=== PATIENT | male | born 1965 | race Caucasian/White ===

== ENCOUNTER 2017-10-03 15:17 | Inpatient (IN) | payer OTHER ==
[~2017-10-03] VITALS: Ht 188 cm; Wt 137.9 kg
[2017-10-03 15:19] VITALS: BP 126/95
--- NOTE | 2017-10-03 16:00 | NUR ---
p0t ambulates to bed 2 at this time.
--- NOTE | 2017-10-03 16:20 | NUR ---
51 yo m bib self w/ c/o intermittent flank pain dysuria x today, but his pain has been intermittent for the past 3-4 days. He has hx kidney stones, and only has 1 kidney. pt reports pain is in his flanks, and he has dysuria with foul smelling urine. Pt also reports feeling "very cold" w/ the chills. no fever at this time. pt a&o x 4. gcs 15. cms intact. rr even and unlabored. lungs bilaterally clear. abd soft, non-tender. er md crook notified. pt needs met. will continue to monitor.
[2017-10-03] MEDS ORDERED: NACL 0.9% 1,000 ML IV SCH (16:47)
[2017-10-03] MEDS ORDERED: METOCLOPRAMIDE 10 MG/2 ML INJ VIAL IVP ONE (16:50)
[2017-10-03] MEDS ORDERED: diphenhydrAMINE 50 MG/ML VIAL IVP ONE (16:50)
[2017-10-03 17:16] LABS: BASOPHILS % (AUTO) 0.3 % (0.0-2.0); EOSINOPHILS % (AUTO) 0.5 % (0.0-4.0); HEMATOCRIT 44.7 % (36-52); HEMOGLOBIN 15.1 g/dL (12.0-18.0); LYMPHOCYTES # (AUTO) 1.7 K/uL (2.0-11.5); LYMPHOCYTES % (AUTO) 16.4 % (20.5-51.1); MEAN CORPUSCULAR HEMOGLOBIN 30 pg (27-31); MEAN CORPUSCULAR HGB CONC 34 g/dL (33-37); MONOCYTES # (AUTO) 0.8 K/uL (0.8-1.0); MONOCYTES % (AUTO) 8.2 % (1.7-9.3); NEUTROPHILS # (AUTO) 7.6 K/uL (1.8-7.7); NEUTROPHILS % (AUTO) 74.6 % (42.2-75.2); PLATELET COUNT (AUTO) 198 K/uL (140-450); RED BLOOD CELL COUNT(AUTO) 4.97 MIL/uL (4.20-6.10); RED CELL DISTRIBUTION WIDTH 13.5 % (11.6-13.7); WHITE BLOOD COUNT (AUTO) 10.2 K/uL (4.8-10.8)
[2017-10-03 17:27] LABS: APPEARANCE,URINE CLOUDY (CLEAR); BILIRUBIN,URINE NEGATIVE (NEGATIVE); BLOOD, URINE 3+ (NEGATIVE); COLOR,URINE YELLOW (YELLOW); LEUKOCYTE ESTERASE ,URINE 2+ (NEGATIVE); NITRITE, URINE NEGATIVE (NEGATIVE); UGLUCOSE NEGATIVE (NEGATIVE)
--- NOTE | 2017-10-03 17:30 | NUR ---
pt resting comfortably in [facility] at this time. will continue to monitor.
[2017-10-03 17:40] LABS: ANION GAP 12.8 (8-16); CARBON DIOXIDE 27.2 mmol/L (21-32); CREATININE 1.1 mg/dL (0.7-1.3)
[2017-10-03 17:46] LABS: ALBUMIN 3.6 g/dL (3.4-5.0); TOTAL BILIRUBIN 0.9 mg/dL (0.0-1.0)
[2017-10-03 17:48] LABS: RBC,URINE 11-20 (MOD) /HPF (0-5); WBC,URINE TOO MANY TO COUNT /HPF (0-5)
[2017-10-03] MEDS ORDERED: LEVOFLOXACIN 750 MG/D5W PREMIX 150 ML IV ONE (18:20)
[2017-10-03] MEDS ORDERED: GENTAMICIN PER PHARMACY MC PRN (18:20)
--- NOTE | 2017-10-03 18:35 | NUR ---
pt on the phone at this time. will continue to monitor.
[2017-10-03] MEDS ORDERED: HYDROcodone/APAP 7.5/325 MG 1 TAB PO PRN (19:30)
[2017-10-03] MEDS ORDERED: ACETAMINOPHEN 325 MG TAB PO PRN (19:30)
[2017-10-03] MEDS ORDERED: MORPHINE SULFATE 2 MG/ML SYR IVP PRN (19:30)
[2017-10-03] MEDS ORDERED: ZOLPIDEM 5 MG TAB PO PRN (19:30)
[2017-10-03] MEDS ORDERED: DOCUSATE SODIUM 100 MG GELCAP PO PRN (19:30)
[2017-10-03] MEDS ORDERED: LORazepam 0.5 MG TAB PO PRN (19:30)
--- NOTE | 2017-10-03 19:42 | NUR ---
X-Ray at bedside.
[2017-10-03 20:12] LABS: PROTHROMBIN TIME 11.3 secs (10.8-13.4)
[2017-10-03 20:16] LABS: CHOL/HDL RATIO 3.8 (1-4.5); FREE T4 (FREE THYROXINE) 1.05 ng/dL (0.76-1.46); MAGNESIUM 1.6 mg/dL (1.8-2.4); PHOSPHORUS 3.6 mg/dL (2.5-4.9); THYROID STIMULATING HORMONE 0.34 uIU/mL (0.34-3.74)
--- NOTE | 2017-10-03 20:16 | NUR ---
Pt talking on the phone with family at this time letting them know he will be staying over night. will continue to monitor.
[2017-10-03 20:30] VITALS: BP 124/94
--- NOTE | 2017-10-03 20:30 | NUR ---
PT ARRIVED ON UNIT VIA GURNEY. AOX4, ON ROOM AIR, IV RIGHT HAND #22G. PT HAS A HX OF FALLS-PRECAUTIONS IN PLACE. DISCUSSED PLAN OF CARE AND PT VERBALIZED UNDERSTANDING. NO S/S OF RESPIRATORY DISTRESS OR DISCOMFORT AT THIS TIME. WHITE BOARD WAS UPDATED. ORIENTED PT TO THE ROOM, HOW TO USE THE CALL LIGHT AND HOW TO OPERATE THE BED. BED IN LOWEST POSITION, SIDE RAILS UP, BED BREAKS ON. SIDE TABLE AND CALL LIGHT WITHIN REACH. MRSA SWAB DONE. WILL CONTINUE TO MONITOR.
--- NOTE | 2017-10-03 20:30 | NUR ---
Patient will be admitted to care of [facility]. Admited to M/S. Will go to [id number]. Belongings list completed. Report to DEYSI Rubio.
[2017-10-03] MEDS: NACL 0.9% 1,000 ML IV SCH (20:45)
--- NOTE | 2017-10-03 20:45 | NUR ---
NS 0.9% HUNG AND INFUSING WELL. NO S/S OF RESPIRATORY DISTRESS OR DISCOMFORT. SANDWICH AND SNACKS PROVIDED REQUESTED. WILL CONTINUE TO MONITOR.
[2017-10-03 21:08] LABS: BARBITURATE, URINE NEGATIVE ng/ml (NEG <=200); BENZODIAZEPINE, URINE NEGATIVE ng/mL (NEG <=200); CANNABINOID, URINE NEGATIVE ng/mL (NEG <=50); PHENCYCLIDINE SCREEN,URINE NEGATIVE ng/mL (NEG <=25)
[2017-10-03 21:09] LABS: OPIATE, URINE NEGATIVE ng/mL (NEG <=2000)
[2017-10-03 21:20] LABS: COCAINE, URINE NEGATIVE ng/mL (NEG <=300)
[2017-10-03] MEDS ORDERED: CARV12.5 PO (21:59)
--- NOTE | 2017-10-03 22:00 | NUR ---
NS 0.9% RATE HAS BEEN CHANGED TO 150ML/HR. WILL CONTINUE TO MONITOR.
[2017-10-03] MEDS ORDERED: MAG SULF 2000 MG/WATER PREMIX 50 ML IV SCH (22:30)
[2017-10-03] MEDS ORDERED: CARVEDILOL 12.5 MG TAB PO SCH (22:30)
--- NOTE | 2017-10-03 22:50 | NUR ---
SCHEDULED MEDICATION GIVEN AND TOLERATED WELL. WILL CONTINUE TO MONITOR.
[2017-10-04] VITALS: BP 116/62
--- NOTE | 2017-10-04 | NUR ---
VITAL SIGNS TAKEN AND TOLERATED WELL. WILL CONTINUE TO MONITOR.
--- NOTE | 2017-10-04 02:00 | NUR ---
PT SLEEPING AT THIS TIME. NO S/S OF RESPIRATORY DISTRESS OR DISCOMFORT NOTED AT THIS TIME. WILL CONTINUE TO MONITOR.
[2017-10-04] MEDS: NACL 0.9% 1,000 ML IV SCH ×3 (02:56→22:06)
--- NOTE | 2017-10-04 03:59 | NUR ---
PT CONTINUES TO SLEEP IN BED. NO S/S OF RESPIRATORY DISTRESS OR DISCOMFORT NOTED AT THIS TIME. WILL CONTINUE TO MONITOR.
--- NOTE | 2017-10-04 06:00 | NUR ---
PT CONTINUES TO SLEEP IN BED. NO S/S OF RESPIRATORY DISTRESS OR DISCOMFORT. WILL CONTINUE TO MONITOR.
--- NOTE | 2017-10-04 07:11 | NUR ---
ENDORSED PT CARE TO DAY SHIFT NURSE LIZETH-DEYSI FOR CONTINUITY OF CARE.
[2017-10-04 07:30] LABS: BASOPHILS % (AUTO) 0.4 % (0.0-2.0); EOSINOPHILS % (AUTO) 0.6 % (0.0-4.0); HEMATOCRIT 40.6 % (36-52); LYMPHOCYTES # (AUTO) 1.7 K/uL (2.0-11.5); MEAN CORPUSCULAR HEMOGLOBIN 31 pg (27-31); MEAN CORPUSCULAR HGB CONC 35 g/dL (33-37); MONOCYTES # (AUTO) 0.8 K/uL (0.8-1.0); MONOCYTES % (AUTO) 9.9 % (1.7-9.3); NEUTROPHILS # (AUTO) 5.6 K/uL (1.8-7.7); NEUTROPHILS % (AUTO) 68.1 % (42.2-75.2); PLATELET COUNT (AUTO) 184 K/uL (140-450); RED BLOOD CELL COUNT(AUTO) 4.56 MIL/uL (4.20-6.10); RED CELL DISTRIBUTION WIDTH 13.6 % (11.6-13.7); WHITE BLOOD COUNT (AUTO) 8.2 K/uL (4.8-10.8)
--- NOTE | 2017-10-04 07:30 | NUR ---
PATIENT AWAKE, ALERT. RESPIRATION EVEN, UNLABOR ON ROOM AIR. SKIN DRY AND WARM. LUNGS SOUND CLEAR THROUGHOUT. BOWEL SOUND ACTIVE 4 QUADRANTS. REGULAR CARDIAC RHYTHM. IV PATENT AND INTACT. DENIED PAIN, SOB, N/V AT THIS TIME. PLAN OF CARE WAS DISCUSSED WITH PATIENT.BED AT LOW POSITION, SIDE RAILS UP. CALL LIGHT WITHIN REACH
[2017-10-04 07:54] LABS: MAGNESIUM 1.9 mg/dL (1.8-2.4); PHOSPHORUS 3.1 mg/dL (2.5-4.9)
[2017-10-04 08:00] VITALS: BP 130/87
[2017-10-04 08:28] LABS: T4 (THYROXINE) 7.7 ug/dL (4.5-12.0)
[2017-10-04 08:48] LABS: ANION GAP 16.2 (8-16); CARBON DIOXIDE 22.6 mmol/L (21-32); CREATININE 1.2 mg/dL (0.7-1.3); POTASSIUM 3.8 mmol/L (3.5-5.1)
--- NOTE | 2017-10-04 08:54 | NUR ---
PATIENT HAS BEEN SCREENED AND CATEGORIZED MODERATE NUTRITION RISK. PATIENT WILL BE SEEN WITHIN 3-5 DAYS OF ADMISSION. 10/06/17 10/08/[address]
[2017-10-04] MEDS: LACTOBACILLUS RHAMNOSUS GG 1 EACH CAP PO SCH (09:11)
--- NOTE | 2017-10-04 09:30 | NUR ---
CT CONSENT WAS OBTAINED AT BEDSIDE. PATIENT VERBALIZED UNDERSTANDING OF PROCEDURE.
--- NOTE | 2017-10-04 12:00 | NUR ---
PATIENT AWAKE, ALERT. RESPIRATION EVEN, UNLABOR ON ROOM AIR. NO DISTRESS NOTED AT THIS TIME. CALL LIGHT WITHIN REACH
--- NOTE | 2017-10-04 14:45 | NUR ---
PATIENT AWAKE, ALERT, AMBULATED SELF TO BATHROOM, STEADY GAIT. RESPIRATION EVEN, UNLABOR ON ROOM AIR. NO DISTRESS NOTED AT THIS TIME
--- NOTE | 2017-10-04 15:49 | NUR ---
PATIENT AMBULATED AROUND THE HALLWAY UNASSISTED, STEADY GAIT. NO DISTRESS NOTED
[2017-10-04 16:00] VITALS: BP 139/94
--- NOTE | 2017-10-04 16:32 | NUR ---
PATIENT IS BEING TRANSFERRED TO CT SCAN. PATIENT IS STABLE AT THIS TIME
[2017-10-04] MEDS ORDERED: LEVOFLOXACIN 750 MG/D5W PREMIX 150 ML IV SCH (18:00)
--- NOTE | 2017-10-04 19:31 | NUR ---
ENDORSEMENT GIVEN TO THE MINER HELPER NURSE. PATIENT IS STABLE AT THIS TIME
--- NOTE | 2017-10-04 19:32 | NUR ---
PATIENT REPORT RECEIVED FROM MORNING NURSE AT BEDSIDE. PATIENT IS AWAKE, ALERT AND ORIENTED. NO SIGNS AND SYMPTOMS OF DISTRESS NOTED. NO COMPLAINTS OF PAIN AT THIS TIME. IV NOTED ON RIGHT HAND, IVF INFUSING WELL. PLAN OF CARE DISCUSSED WITH PATIENT. PATIENT WOULD LIKE TO SEE THE MD, AND ASK QUESTIONS. LET THE PATIENT KNOW THAT I WILL CONTACT THE DR. SAFETY PRECAUTIONS IN PLACE. CALL LIGHT WITHIN REACH. WILL CONTINUE TO MONITOR.
[2017-10-04] MEDS ORDERED: CARVEDILOL 12.5 MG TAB PO SCH (21:00)
--- NOTE | 2017-10-04 21:00 | NUR ---
PATIENT SEEN BY DR. NELSON
--- NOTE | 2017-10-04 21:30 | NUR ---
REMOVED IV SITE ON RIGHT AC, PER PATIENT'S REQUEST AND DR STATED THAT IT WAS OK TO REMOVE. IV CANNULA INTACT. PATIENT TOLERATED WELL.
--- NOTE | 2017-10-04 22:00 | NUR ---
MEDICATION EDUCATION GIVEN. PATIENT VERBALIZED UNDERSTANDING. MEDICATION ADMINISTERED ORDERED
[2017-10-05] VITALS: BP 131/84
--- NOTE | 2017-10-05 | NUR ---
CHECKED ON PATIENT. PATIENT IS ASLEEP. NO SIGNS AND SYMPTOMS OF DISTRESS NOTED. BREATHING EVEN AND UNLABORED. WILL CONTINUE TO MONITOR
--- NOTE | 2017-10-05 02:00 | NUR ---
CHECKED ON PATIENT. PATIENT IS ASLEEP. NO SIGNS AND SYMPTOMS OF DISTRESS NOTED. BREATHING EVEN AND UNLABORED. WILL CONTINUE TO MONITOR
--- NOTE | 2017-10-05 04:00 | NUR ---
PATIENT IS ASLEEP. NO SIGNS AND SYMPTOMS OF DISTRESS NOTED. BREATHING EVEN AND UNLABORED. WILL CONTINUE TO MONITOR
[2017-10-05 07:14] LABS: ANION GAP 12.8 (8-16); CARBON DIOXIDE 24.1 mmol/L (21-32); CREATININE 1.1 mg/dL (0.7-1.3); POTASSIUM 3.9 mmol/L (3.5-5.1)
--- NOTE | 2017-10-05 07:20 | NUR ---
PATIENT REPORT GIVEN TO MORNING NURSE AT BEDSIDE. PATIENT IS IN STABLE CONDITION.
--- NOTE | 2017-10-05 07:21 | NUR ---
RECEIVED REPORT FROM THE CUSTOMER SERVICE AND SALES CONSULTANT NURSE AT BEDSIDE FOR CONTINUITY OF CARE. PT IS AWAKE AND ORIENTED. LAB IS HERE FOR MORNING BLOOD DRAW. INTRODUCED MYSELF AND UPDATED THE BOARD. SKIN INTACT; LBM THIS MORNING; PT WOULD LIKE TO GO HOME TODAY. PER MD, REQUESTED A UROLOGY CONSULT. ONCE SEEN, POSSIBLE D/C TODAY. PER PT, IF THEY DON'T D/C HIM TODAY, HE WILL BE AMA. IV ON R HAND 22G NS SL. PER NEW ORDER. WILL CONTINUE TO MONITOR PT.
[2017-10-05 08:00] VITALS: BP 127/93
[2017-10-05 08:32] LABS: BASOPHILS % (AUTO) 0.5 % (0.0-2.0); EOSINOPHILS # (AUTO) 0.1 K/uL (0-0.4); EOSINOPHILS % (AUTO) 1.3 % (0.0-4.0); HEMATOCRIT 41.8 % (36-52); HEMOGLOBIN 14.4 g/dL (12.0-18.0); LYMPHOCYTES # (AUTO) 1.7 K/uL (2.0-11.5); LYMPHOCYTES % (AUTO) 18.4 % (20.5-51.1); MEAN CORPUSCULAR HEMOGLOBIN 31 pg (27-31); MEAN CORPUSCULAR HGB CONC 34 g/dL (33-37); MEAN CORPUSCULAR VOLUME 89.9 fL (80-94); MONOCYTES # (AUTO) 0.8 K/uL (0.8-1.0); MONOCYTES % (AUTO) 8.5 % (1.7-9.3); NEUTROPHILS # (AUTO) 6.4 K/uL (1.8-7.7); NEUTROPHILS % (AUTO) 71.3 % (42.2-75.2); PLATELET COUNT (AUTO) 190 K/uL (140-450); RED BLOOD CELL COUNT(AUTO) 4.65 MIL/uL (4.20-6.10); RED CELL DISTRIBUTION WIDTH 13.7 % (11.6-13.7)
[2017-10-05] MEDS: LACTOBACILLUS RHAMNOSUS GG 1 EACH CAP PO SCH (08:44)
--- NOTE | 2017-10-05 08:45 | NUR ---
ADMINISTERED MORNING MED. PT TOLERATED WELL. PT AGAIN STATES THAT AFTER SEEING THE UROLOGIST, IF HE DOESN'T DISCHARGE HIM, HE WILL GO AMA.
--- NOTE | 2017-10-05 11:13 | NUR ---
PT SLEEPING. NO SIGNS OF DISTRESS. WILL CONTINUE TO AWAIT THE UROLOGIST CONSULT.
--- NOTE | 2017-10-05 13:00 | NUR ---
PT REQUESTED THE AMA FORM SO THAT HE CAN LEAVE. SPOKE TO DR HERRERA. EXPLAINED THE RISKS OF LEAVING AMA. PT VERBALIZED UNDERSTANDING. SIGNED THE PAPER. REMOVED THE IV, CANNULA INTACT. NO BLEEDING NOTED. REMOVED ID BANDS. PT WILL GET DRESSED AND WAIT FOR HIS FRIEND TO COME PICK HIM UP. WILL LET US KNOW WHEN HE LEAVES.
[2017-10-05] MEDS ORDERED: LEVO500T2 PO (13:11)
--- NOTE | 2017-10-05 13:35 | NUR ---
PT WALKED OUT WITH FRIEND. ALL PERSONAL BELONGINGS WITH HIM, INCLUDING RX FOR ABX. PT IN STABLE CONDITION. WILL F/U WITH HIS DR PER PT.
== END 2017-10-05 13:35 | disposition left against medical advice (07) | DRG 690 ==
LOC: MED 15:17 → MTU 19:34
PROVIDERS: ADMIT General Practice; ATTEND General Practice
DX: N39.0 Urinary tract infection, site not specified (principal); Q60.0 Renal agenesis, unilateral; Q60.3 Renal hypoplasia, unilateral; I10 Essential (primary) hypertension; E86.0 Dehydration; F17.200 Nicotine dependence, unspecified, uncomplicated; R73.03 Prediabetes; E83.42 Hypomagnesemia; R16.1 Splenomegaly, not elsewhere classified; K40.20 Bilateral inguinal hernia, without obstruction or gangrene, not specified as recurrent; K80.20 Calculus of gallbladder without cholecystitis without obstruction; Z53.21 Procedure and treatment not carried out due to patient leaving prior to being seen by health care provider; Z79.899 Other long term (current) drug therapy; Z87.440 Personal history of urinary (tract) infections
CPT/HCPCS: 36415; 71045; 76770; 80048; 80053; 80305; 81001; 82150; 83036; 83690; 83735; 83880; 84100; 84436; 84439; 84443; 84479; 84484; 85025; 85610; 85730; 87081; 87086; 93005; 96361; 96365; 96375; 99285; J1200; J1956; J2765; J3475; J7030; Q0092; Q9967